=== PATIENT | male | born 1945 | race Caucasian/White ===

== ENCOUNTER 2017-03-08 07:02 | Inpatient (IN) | payer MEDICARE, BC ==
[~2017-03-08] VITALS: Ht 144.8 cm; Wt 97.5 kg
[2017-03-08] MEDS ORDERED: SIMV20TA6 PO (08:31)
[2017-03-08] MEDS ORDERED: MULT-1168 PO (08:31)
[2017-03-08] MEDS ORDERED: METF500T4 PO (08:31)
[2017-03-08] MEDS ORDERED: CALC-911 PO (08:31)
[2017-03-08] MEDS ORDERED: CHOL100044 PO (08:31)
[2017-03-08] MEDS ORDERED: ASPI81TA2 PO (08:31)
[2017-03-08] MEDS ORDERED: FURO20TA4 PO (08:31)
[2017-03-08] MEDS ORDERED: BENA20TA2 PO (08:31)
[2017-03-08] MEDS ORDERED: ASPI-869 PO (08:40)
[2017-03-08] MEDS ORDERED: MEMA10TA PO (08:50)
[2017-03-08] MEDS ORDERED: LOSA25TA13 PO (08:50)
[2017-03-08] MEDS ORDERED: FERR-58 PO (08:50)
[2017-03-08] MEDS ORDERED: ASPI-991 PO (08:50)
[2017-03-08] MEDS ORDERED: DONE10TA44 PO (08:50)
[2017-03-08] MEDS ORDERED: ACETAMINOPHEN 325 MG TABLET PO PRN (09:00)
[2017-03-08] MEDS ORDERED: MAG HYDROX/AL HYDROX/SIMETH 30 ML UDC PO PRN (09:00)
[2017-03-08] MEDS ORDERED: MAGNESIUM HYDROXIDE 30 ML UDC PO PRN (09:00)
[2017-03-08] MEDS ORDERED: ZOLPIDEM TARTRATE 5 MG TABLET PO PRN (09:00)
--- NOTE | 2017-03-08 09:30 | NUR ---
DIRECT ADMIT FROM [facility], WHERE HE WAS MEDICALLY CLEARED. ORIGINALLY HE CAME FROM HOME WHERE HE WAS HITTING THE ROOMMATE (FEMALE). ADMITTED ON A 5150 HOLD GD DTO. VITALS STABLE ON ADMISSION, HE IS AGITATED AND WAS PUSHING MEDICAL TRANSPORT. DR. ENG IS ADMITTING PSYCHIATRIST. DR. MOY ON THE UNIT NOTIFIED TO RECONCILE MEDICATIONS.
[2017-03-08 09:33] VITALS: BP 142/83
[2017-03-08 10:11] VITALS: BP 158/72
[2017-03-08 15:37] VITALS: BP 156/79
[2017-03-08 16:00] VITALS: BP 156/79
--- NOTE | 2017-03-08 16:36 | NUR ---
Initial Discharge Plan: According to face sheet, patient lives at [address] [facility] [address], . However, patient informed SW that he lives in [place]. Patient seems confused and disoriented. SW will follow up with treatment team and will work to arrange safe and proper discharge. SW will provide referrals to address pt's smoking habits and alcohol use.
[2017-03-08 17:00] VITALS: BP 156/79
[2017-03-08] MEDS: METFORMIN 500 MG TABLET PO SCH (17:18)
[2017-03-08] MEDS ORDERED: SIMVASTATIN 20 MG TABLET PO SCH (18:00)
[2017-03-08 20:00] VITALS: BP 155/83
[2017-03-08] MEDS: DONEPEZIL 5 MG TABLET PO SCH (22:00)
[2017-03-08] MEDS: SIMVASTATIN 20 MG TABLET PO SCH (22:00)
[2017-03-08] MEDS: QUETIAPINE FUMARATE 25 MG TABLET PO SCH (22:00)
--- NOTE | 2017-03-08 22:13 | NUR ---
PT REFUSED SCHEDULED MEDICATIONS. OFFER 3X. EXPLAIN THE RISK AND BENEFITS OF NOT TAKING HIS MEDS. PT STILL REFUSED. WILL CONTINUE TO MONITOR.
[2017-03-09 08:00] VITALS: BP 140/83
[2017-03-09] MEDS: METFORMIN 500 MG TABLET PO SCH ×2 (09:04→16:18)
[2017-03-09] MEDS: MULTIVITAMIN/LUTEIN/MINERALS 1 TAB PO SCH (09:04)
[2017-03-09] MEDS: CHOLECALCIFEROL 1,000 UNIT TABLET (VIT D3) PO SCH (09:04)
[2017-03-09] MEDS: BENAZEPRIL HCL 5 MG TABLET PO SCH (09:04)
[2017-03-09] MEDS: MEMANTINE HCL 5 MG TABLET PO SCH (09:04)
[2017-03-09] MEDS: CALCIUM CARBONATE 500 MG TAB.CHEW PO SCH (09:04)
[2017-03-09] MEDS: FERROUS SULFATE (325 MG) 325 MG/TAB TABLET PO SCH (09:05)
[2017-03-09] MEDS: LOSARTAN POTASSIUM 25 MG TABLET PO SCH (09:05)
[2017-03-09] MEDS: ASPIRIN EC 81 MG TABLET.DR PO SCH (09:05)
[2017-03-09] MEDS: NICOTINE PATCH (21MG) 21 MG PATCH.TD24 TD SCH (11:58)
--- NOTE | 2017-03-09 15:30 | NUR ---
REMINGTON received a call from Becki Garcia, . Becki stated that the had Power of Greenhouse Technician for patient. REMINGTON asked her to fax over the documents to fax number [phone]. REMINGTON stated that if patient cannot fax that before 5pm on Sunday, to please fax it to the nurse's station at [phone]. Becki stated that "all I know is I don't want him out of the street." She stated that a jail would be a good option for him.
[2017-03-09 15:36] LABS: BASOPHILS # (AUTO) 0.1 /CMM (0.0-0.2); BASOPHILS % (AUTO) 0.7 % (0.0-2.0); EOSINOPHILS # (AUTO) 0.4 /CMM (0.0-0.7); HEMATOCRIT 53 % (39-51); LYMPHOCYTES # (AUTO) 2.1 /CMM (0.8-4.8); LYMPHOCYTES % (AUTO) 22.7 % (20.0-44.0); MEAN CORPUSCULAR HEMOGLOBIN 25 PG (26.0-33.0); MEAN CORPUSCULAR HGB CONC 32 g/dl (31.0-36.0); MEAN CORPUSCULAR VOLUME 79 fL (80-96); MONOCYTES # (AUTO) 0.8 /CMM (0.1-1.30); MONOCYTES % (AUTO) 8.4 % (2.0-12.0); NEUTROPHILS % (AUTO) 64.2 % (43.0-81.0); PLATELET COUNT (AUTO) 232 /CMM (150-450); RDW COEFFICIENT OF VARIATION 13.7 (11.5-15.0); RED BLOOD CELL COUNT(AUTO) 6.74 MIL/uL (4.5-6.0); WHITE BLOOD COUNT (AUTO) 9.3 K/uL (4.3-11.0)
[2017-03-09 15:57] LABS: ALANINE AMINOTRANSFERASE 18 U/L (12-78); ALBUMIN 3.7 g/dL (3.4-5.0); ALKALINE PHOSPHATASE 83 U/L (46-116); ASPARTATE AMINOTRANSFERASE 14 U/L (15-37); BILIRUBIN,TOTAL 0.8 mg/dL (0.2-1.0); CARBON DIOXIDE 33 mmol/L (21-32); CHLORIDE 102 mmol/L (98-107); CREATININE 0.9 mg/dL (0.6-1.3); GLUCOSE 153 mg/dL (74-106); MAGNESIUM 2.2 mg/dL (1.8-2.4); PHOSPHORUS 3.5 mg/dL (2.5-4.9); POTASSIUM 4.8 mmol/L (3.5-5.1); SODIUM SERUM 140 mmol/L (136-145); TOTAL PROTEIN, SERUM 8.3 g/dL (6.4-8.2); UREA NITROGEN, BLOOD 13 mg/dL (7-18)
[2017-03-09 16:03] VITALS: BP 127/55
[2017-03-09 16:07] LABS: CHOLESTEROL 202 mg/dL (<200); HDL CHOLESTEROL 45 mg/dL (40-60); LDL 128 mg/dL (0-99); THYROID STIMULATING HORMONE 1.257 uIU/mL (0.358-3.74); TRIGLYCERIDES 191 mg/dL (30-150)
[2017-03-09 20:00] VITALS: BP 101/52
[2017-03-09] MEDS: SIMVASTATIN 20 MG TABLET PO SCH (21:50)
[2017-03-09] MEDS: QUETIAPINE FUMARATE 25 MG TABLET PO SCH (21:50)
[2017-03-09] MEDS: DONEPEZIL 5 MG TABLET PO SCH (21:50)
[2017-03-10 09:00] VITALS: BP 100/63
[2017-03-10] MEDS: LOSARTAN POTASSIUM 25 MG TABLET PO SCH (09:00)
[2017-03-10] MEDS: BENAZEPRIL HCL 5 MG TABLET PO SCH (09:00)
[2017-03-10] MEDS: MEMANTINE HCL 5 MG TABLET PO SCH (09:12)
[2017-03-10] MEDS: CALCIUM CARBONATE 500 MG TAB.CHEW PO SCH (09:12)
[2017-03-10] MEDS: NICOTINE PATCH (21MG) 21 MG PATCH.TD24 TD SCH (09:12)
[2017-03-10] MEDS: ASPIRIN EC 81 MG TABLET.DR PO SCH (09:13)
[2017-03-10] MEDS: CHOLECALCIFEROL 1,000 UNIT TABLET (VIT D3) PO SCH (09:13)
[2017-03-10] MEDS: MULTIVITAMIN/LUTEIN/MINERALS 1 TAB PO SCH (09:13)
[2017-03-10] MEDS: FERROUS SULFATE (325 MG) 325 MG/TAB TABLET PO SCH (09:13)
[2017-03-10] MEDS: METFORMIN 500 MG TABLET PO SCH ×2 (09:15→16:41)
[2017-03-10 16:00] VITALS: BP 111/70
[2017-03-10 20:00] VITALS: BP 115/50
[2017-03-10] MEDS ORDERED: QUETIAPINE FUMARATE 25 MG TABLET ONE (21:58)
[2017-03-10] MEDS: SIMVASTATIN 20 MG TABLET PO SCH (22:04)
[2017-03-10] MEDS: QUETIAPINE FUMARATE 25 MG TABLET PO SCH (22:04)
[2017-03-10] MEDS: DONEPEZIL 5 MG TABLET PO SCH (22:05)
[2017-03-11 08:11] VITALS: BP 119/66
[2017-03-11 08:26] LABS: APPEARANCE,URINE CLEAR (CLEAR); BILIRUBIN,URINE 1+ (NEGATIVE); BLOOD, URINE NEGATIVE Ery/uL (NEGATIVE); COLOR,URINE YELLOW (YELLOW); KETONES,URINE NEGATIVE (NEGATIVE); LEUKOCYTE ESTERASE ,URINE NEGATIVE (NEGATIVE); NITRITE, URINE NEGATIVE (NEGATIVE); PH,URINE 5.5 (5.0-8.0); PROTEIN,URINE NEGATIVE (NEGATIVE); UGLUCOSE NEGATIVE (NEGATIVE); UROBILINOGEN,URINE 0.2 EU/dL (0.2)
--- NOTE | 2017-03-11 08:35 | NUR ---
GPS RN NOTE: PATIENT IN THE ROOM RESTING AWAKE, NO SS DISTRESS NOTED,PER LICENSED PSYCHOLOGIST MANAGER RN PT HAD BMX2 WITH SOFT STOOL WILL CONTINUE MONITORING FOR SAFETY AND BEHAVIOR Q 15 MIN
[2017-03-11] MEDS: BENAZEPRIL HCL 5 MG TABLET PO SCH (09:20)
[2017-03-11] MEDS: NICOTINE PATCH (21MG) 21 MG PATCH.TD24 TD SCH (09:20)
[2017-03-11] MEDS: ASPIRIN EC 81 MG TABLET.DR PO SCH (09:20)
[2017-03-11] MEDS: CHOLECALCIFEROL 1,000 UNIT TABLET (VIT D3) PO SCH (09:20)
[2017-03-11] MEDS: CALCIUM CARBONATE 500 MG TAB.CHEW PO SCH (09:20)
[2017-03-11] MEDS: FERROUS SULFATE (325 MG) 325 MG/TAB TABLET PO SCH (09:20)
[2017-03-11] MEDS: MEMANTINE HCL 5 MG TABLET PO SCH (09:20)
[2017-03-11] MEDS: METFORMIN 500 MG TABLET PO SCH ×2 (09:20→16:46)
[2017-03-11] MEDS: MULTIVITAMIN/LUTEIN/MINERALS 1 TAB PO SCH (09:21)
[2017-03-11] MEDS: LOSARTAN POTASSIUM 25 MG TABLET PO SCH (09:21)
[2017-03-11 09:48] LABS: BACTERIA,URINE Rare /HPF (None Seen); RBC,URINE 0-2 /HPF (0-2); SQUAMOUS EPITHELIAL CELL,UR Few /HPF (None Seen); WBC,URINE 0-2 /HPF (0-3)
[2017-03-11 16:00] VITALS: BP 106/56
--- NOTE | 2017-03-11 18:04 | NUR ---
GPS RN NOTE: PATIENT IN THE DINNING ROOM SITTING IN THE CHAIR,AWAKE NO S/S DISTRESS NOTED,RESPIRATION EVEN NONLABORED , PT COMPLIANT WITH MEDICATIONS, DENIES SI/HI DENIES PAIN IN DISCOMFORT,VSS STABLE , PATIENT HAD NO BM THIS SHIFT WILL CONTINUE MONITORING AND INDORSE TO INCOMING SHIFT RN FOR CONTINUATION OF CARE.
[2017-03-11 19:39] VITALS: BP 97/56
[2017-03-11] MEDS: SIMVASTATIN 20 MG TABLET PO SCH (21:42)
[2017-03-11] MEDS: QUETIAPINE FUMARATE 25 MG TABLET PO SCH (21:42)
[2017-03-11] MEDS: DONEPEZIL 5 MG TABLET PO SCH (21:43)
[2017-03-12 08:04] LABS: THYROID STIMULATING HORMONE 1.486 uIU/mL (0.358-3.74)
[2017-03-12 08:11] VITALS: BP 122/62
[2017-03-12] MEDS: LOSARTAN POTASSIUM 25 MG TABLET PO SCH (08:19)
[2017-03-12] MEDS: METFORMIN 500 MG TABLET PO SCH ×2 (08:19→16:58)
[2017-03-12] MEDS: MULTIVITAMIN/LUTEIN/MINERALS 1 TAB PO SCH (08:19)
[2017-03-12] MEDS: FERROUS SULFATE (325 MG) 325 MG/TAB TABLET PO SCH (08:20)
[2017-03-12] MEDS: MEMANTINE HCL 5 MG TABLET PO SCH (08:20)
[2017-03-12] MEDS: ASPIRIN EC 81 MG TABLET.DR PO SCH (08:20)
[2017-03-12] MEDS: BENAZEPRIL HCL 5 MG TABLET PO SCH (08:20)
[2017-03-12] MEDS: CALCIUM CARBONATE 500 MG TAB.CHEW PO SCH (08:20)
[2017-03-12] MEDS: CHOLECALCIFEROL 1,000 UNIT TABLET (VIT D3) PO SCH (08:20)
[2017-03-12] MEDS: NICOTINE PATCH (21MG) 21 MG PATCH.TD24 TD SCH (08:20)
--- NOTE | 2017-03-12 12:42 | NUR ---
Discharge Planning: REMINGTON faxed inquiry to [facility] [id number] [place] [address] , fax number: [phone]
[2017-03-12 19:55] VITALS: BP 110/66
[2017-03-12] MEDS ORDERED: QUETIAPINE FUMARATE 25 MG TABLET PO SCH (20:00)
[2017-03-12] MEDS: DONEPEZIL 5 MG TABLET PO SCH (21:39)
[2017-03-12] MEDS: SIMVASTATIN 20 MG TABLET PO SCH (21:39)
[2017-03-13 08:00] VITALS: BP 100/69
[2017-03-13] MEDS: ASPIRIN EC 81 MG TABLET.DR PO SCH (08:40)
[2017-03-13] MEDS: FERROUS SULFATE (325 MG) 325 MG/TAB TABLET PO SCH (08:40)
[2017-03-13] MEDS: CHOLECALCIFEROL 1,000 UNIT TABLET (VIT D3) PO SCH (08:40)
[2017-03-13] MEDS: METFORMIN 500 MG TABLET PO SCH ×2 (08:40→16:45)
[2017-03-13] MEDS: LOSARTAN POTASSIUM 25 MG TABLET PO SCH (08:40)
[2017-03-13] MEDS: MEMANTINE HCL 5 MG TABLET PO SCH (08:40)
[2017-03-13] MEDS: MULTIVITAMIN/LUTEIN/MINERALS 1 TAB PO SCH (08:40)
[2017-03-13] MEDS: CALCIUM CARBONATE 500 MG TAB.CHEW PO SCH (08:40)
[2017-03-13] MEDS: BENAZEPRIL HCL 5 MG TABLET PO SCH (08:41)
[2017-03-13] MEDS: NICOTINE PATCH (21MG) 21 MG PATCH.TD24 TD SCH (09:33)
[2017-03-13 15:32] VITALS: BP 150/68
[2017-03-13] MEDS ORDERED: Z GUARD REMEDY 2 OZ OINT TP PRN (16:00)
[2017-03-13] MEDS: QUETIAPINE FUMARATE 25 MG TABLET PO SCH (20:16)
[2017-03-13 20:26] VITALS: BP 139/59
[2017-03-13] MEDS: SIMVASTATIN 20 MG TABLET PO SCH (21:07)
[2017-03-13] MEDS: DONEPEZIL 5 MG TABLET PO SCH (21:07)
[2017-03-14 08:00] VITALS: BP 135/73
[2017-03-14] MEDS: CALCIUM CARBONATE 500 MG TAB.CHEW PO SCH (08:28)
[2017-03-14] MEDS: MULTIVITAMIN/LUTEIN/MINERALS 1 TAB PO SCH (08:28)
[2017-03-14] MEDS: BENAZEPRIL HCL 5 MG TABLET PO SCH (08:28)
[2017-03-14] MEDS: CHOLECALCIFEROL 1,000 UNIT TABLET (VIT D3) PO SCH (08:29)
[2017-03-14] MEDS: ASPIRIN EC 81 MG TABLET.DR PO SCH (08:29)
[2017-03-14] MEDS: METFORMIN 500 MG TABLET PO SCH ×2 (08:29→17:02)
[2017-03-14] MEDS: LOSARTAN POTASSIUM 25 MG TABLET PO SCH (08:29)
[2017-03-14] MEDS: FERROUS SULFATE (325 MG) 325 MG/TAB TABLET PO SCH (08:29)
[2017-03-14] MEDS: MEMANTINE HCL 5 MG TABLET PO SCH (08:29)
[2017-03-14] MEDS: NICOTINE PATCH (21MG) 21 MG PATCH.TD24 TD SCH (08:29)
[2017-03-14 16:29] VITALS: BP 134/71
[2017-03-14 20:08] VITALS: BP 137/63
[2017-03-14] MEDS: QUETIAPINE FUMARATE 25 MG TABLET PO SCH (20:18)
[2017-03-14] MEDS: DONEPEZIL 5 MG TABLET PO SCH (21:22)
[2017-03-14] MEDS: SIMVASTATIN 20 MG TABLET PO SCH (21:22)
[2017-03-15 08:05] VITALS: BP 129/58
[2017-03-15] MEDS: NICOTINE PATCH (21MG) 21 MG PATCH.TD24 TD SCH (08:46)
[2017-03-15] MEDS: CHOLECALCIFEROL 1,000 UNIT TABLET (VIT D3) PO SCH (08:47)
[2017-03-15] MEDS: MULTIVITAMIN/LUTEIN/MINERALS 1 TAB PO SCH (08:47)
[2017-03-15] MEDS: BENAZEPRIL HCL 5 MG TABLET PO SCH (08:47)
[2017-03-15] MEDS: CALCIUM CARBONATE 500 MG TAB.CHEW PO SCH (08:47)
[2017-03-15] MEDS: METFORMIN 500 MG TABLET PO SCH ×2 (08:47→16:47)
[2017-03-15] MEDS: FERROUS SULFATE (325 MG) 325 MG/TAB TABLET PO SCH (08:47)
[2017-03-15] MEDS: MEMANTINE HCL 5 MG TABLET PO SCH (08:47)
[2017-03-15] MEDS: LOSARTAN POTASSIUM 25 MG TABLET PO SCH (08:47)
[2017-03-15] MEDS: ASPIRIN EC 81 MG TABLET.DR PO SCH (08:47)
[2017-03-15 15:37] VITALS: BP 126/89
[2017-03-15 20:00] VITALS: BP 118/65
[2017-03-15] MEDS: QUETIAPINE FUMARATE 25 MG TABLET PO SCH (21:19)
[2017-03-15] MEDS: SIMVASTATIN 20 MG TABLET PO SCH (21:59)
[2017-03-15] MEDS: DONEPEZIL 5 MG TABLET PO SCH (21:59)
[2017-03-16 07:54] VITALS: BP 129/68
[2017-03-16] MEDS: CALCIUM CARBONATE 500 MG TAB.CHEW PO SCH (08:24)
[2017-03-16] MEDS: MULTIVITAMIN/LUTEIN/MINERALS 1 TAB PO SCH (08:24)
[2017-03-16] MEDS: BENAZEPRIL HCL 5 MG TABLET PO SCH (08:24)
[2017-03-16] MEDS: FERROUS SULFATE (325 MG) 325 MG/TAB TABLET PO SCH (08:24)
[2017-03-16] MEDS: METFORMIN 500 MG TABLET PO SCH ×2 (08:24→16:32)
[2017-03-16] MEDS: MEMANTINE HCL 5 MG TABLET PO SCH (08:24)
[2017-03-16] MEDS: ASPIRIN EC 81 MG TABLET.DR PO SCH (08:24)
[2017-03-16] MEDS: CHOLECALCIFEROL 1,000 UNIT TABLET (VIT D3) PO SCH (08:24)
[2017-03-16] MEDS: NICOTINE PATCH (21MG) 21 MG PATCH.TD24 TD SCH (08:25)
[2017-03-16] MEDS: LOSARTAN POTASSIUM 25 MG TABLET PO SCH (08:25)
--- NOTE | 2017-03-16 13:46 | NUR ---
Discharge Planning: REMINGTON faxed an inquiry to [facility] [phone] / fax number [phone]
--- NOTE | 2017-03-16 13:46 | NUR ---
Discharge Planning: REMINGTON heard from Earnest from [facility] [address] [place] [address] , fax number: [phone] who stated that he will not know of a male bed availability until Monday 03/19. REMINGTON will follow up on Sunday.
[2017-03-16 16:09] VITALS: BP 130/65
[2017-03-16 20:03] VITALS: BP 137/64
[2017-03-16] MEDS: QUETIAPINE FUMARATE 25 MG TABLET PO SCH (20:22)
[2017-03-16] MEDS: SIMVASTATIN 20 MG TABLET PO SCH (21:55)
[2017-03-16] MEDS: DONEPEZIL 5 MG TABLET PO SCH (21:55)
[2017-03-17 08:00] VITALS: BP 117/60
[2017-03-17] MEDS: CHOLECALCIFEROL 1,000 UNIT TABLET (VIT D3) PO SCH (09:26)
[2017-03-17] MEDS: LOSARTAN POTASSIUM 25 MG TABLET PO SCH (09:26)
[2017-03-17] MEDS: CALCIUM CARBONATE 500 MG TAB.CHEW PO SCH (09:26)
[2017-03-17] MEDS: MULTIVITAMIN/LUTEIN/MINERALS 1 TAB PO SCH (09:26)
[2017-03-17] MEDS: FERROUS SULFATE (325 MG) 325 MG/TAB TABLET PO SCH (09:26)
[2017-03-17] MEDS: MEMANTINE HCL 5 MG TABLET PO SCH (09:26)
[2017-03-17] MEDS: ASPIRIN EC 81 MG TABLET.DR PO SCH (09:26)
[2017-03-17] MEDS: BENAZEPRIL HCL 5 MG TABLET PO SCH (09:26)
[2017-03-17] MEDS: METFORMIN 500 MG TABLET PO SCH ×2 (09:26→16:33)
[2017-03-17] MEDS: NICOTINE PATCH (21MG) 21 MG PATCH.TD24 TD SCH (09:56)
[2017-03-17 16:00] VITALS: BP 117/68
[2017-03-17 20:00] VITALS: BP 135/67
[2017-03-17] MEDS: QUETIAPINE FUMARATE 25 MG TABLET PO SCH (20:30)
[2017-03-17] MEDS: DONEPEZIL 5 MG TABLET PO SCH (21:46)
[2017-03-17] MEDS: SIMVASTATIN 20 MG TABLET PO SCH (21:46)
[2017-03-18 08:13] VITALS: BP 125/91
[2017-03-18] MEDS: MULTIVITAMIN/LUTEIN/MINERALS 1 TAB PO SCH (08:52)
[2017-03-18] MEDS: CHOLECALCIFEROL 1,000 UNIT TABLET (VIT D3) PO SCH (08:52)
[2017-03-18] MEDS: MEMANTINE HCL 5 MG TABLET PO SCH (08:53)
[2017-03-18] MEDS: FERROUS SULFATE (325 MG) 325 MG/TAB TABLET PO SCH (08:53)
[2017-03-18] MEDS: CALCIUM CARBONATE 500 MG TAB.CHEW PO SCH (08:53)
[2017-03-18] MEDS: METFORMIN 500 MG TABLET PO SCH ×2 (08:53→16:17)
[2017-03-18] MEDS: BENAZEPRIL HCL 5 MG TABLET PO SCH (08:53)
[2017-03-18] MEDS: NICOTINE PATCH (21MG) 21 MG PATCH.TD24 TD SCH (08:53)
[2017-03-18] MEDS: ASPIRIN EC 81 MG TABLET.DR PO SCH (08:53)
[2017-03-18] MEDS: LOSARTAN POTASSIUM 25 MG TABLET PO SCH (08:54)
[2017-03-18 16:12] VITALS: BP 107/65
[2017-03-18 20:27] VITALS: BP 109/54
[2017-03-18] MEDS: QUETIAPINE FUMARATE 25 MG TABLET PO SCH (20:50)
[2017-03-18] MEDS: DONEPEZIL 5 MG TABLET PO SCH (21:17)
[2017-03-18] MEDS: SIMVASTATIN 20 MG TABLET PO SCH (21:18)
[2017-03-19 08:00] VITALS: BP 132/73
[2017-03-19] MEDS: MULTIVITAMIN/LUTEIN/MINERALS 1 TAB PO SCH (08:13)
[2017-03-19] MEDS: FERROUS SULFATE (325 MG) 325 MG/TAB TABLET PO SCH (08:13)
[2017-03-19] MEDS: BENAZEPRIL HCL 5 MG TABLET PO SCH (08:13)
[2017-03-19] MEDS: METFORMIN 500 MG TABLET PO SCH ×2 (08:13→16:58)
[2017-03-19] MEDS: CHOLECALCIFEROL 1,000 UNIT TABLET (VIT D3) PO SCH (08:14)
[2017-03-19] MEDS: NICOTINE PATCH (21MG) 21 MG PATCH.TD24 TD SCH (08:14)
[2017-03-19] MEDS: CALCIUM CARBONATE 500 MG TAB.CHEW PO SCH (08:14)
[2017-03-19] MEDS: MEMANTINE HCL 5 MG TABLET PO SCH (08:14)
[2017-03-19] MEDS: ASPIRIN EC 81 MG TABLET.DR PO SCH (08:14)
[2017-03-19] MEDS: LOSARTAN POTASSIUM 25 MG TABLET PO SCH (08:15)
--- NOTE | 2017-03-19 12:22 | NUR ---
Discharge Planning: SW faxed inquiry to [address] [address] / fax number [phone], as well as sister facilities. SW to follow up.
--- NOTE | 2017-03-19 12:25 | NUR ---
Discharge Planning: SW called July from [facility] [phone] / fax number [phone], who stated that they could not find a strong enough skilled need for patient and, therefore, cannot accept.
--- NOTE | 2017-03-19 14:46 | NUR ---
Discharge Planning: At the request of pt's sister, Paula [phone], to keep patient near the [place] area, REMINGTON faxed an inquiry to [facility] [phone] / fax number [phone] [facility] [address] [place] [address] / fax number [phone]
[2017-03-19 16:00] VITALS: BP 112/63
[2017-03-19 19:50] VITALS: BP 121/71
[2017-03-19] MEDS: QUETIAPINE FUMARATE 25 MG TABLET PO SCH (20:43)
[2017-03-19] MEDS: DONEPEZIL 5 MG TABLET PO SCH (22:14)
[2017-03-19] MEDS: SIMVASTATIN 20 MG TABLET PO SCH (22:14)
[2017-03-20 08:00] VITALS: BP 114/69
[2017-03-20] MEDS: MULTIVITAMIN/LUTEIN/MINERALS 1 TAB PO SCH (09:00)
[2017-03-20] MEDS: NICOTINE PATCH (21MG) 21 MG PATCH.TD24 TD SCH (10:54)
[2017-03-20] MEDS: ASPIRIN EC 81 MG TABLET.DR PO SCH (10:55)
[2017-03-20] MEDS: CHOLECALCIFEROL 1,000 UNIT TABLET (VIT D3) PO SCH (10:55)
[2017-03-20] MEDS: FERROUS SULFATE (325 MG) 325 MG/TAB TABLET PO SCH (10:55)
[2017-03-20] MEDS: METFORMIN 500 MG TABLET PO SCH ×2 (10:55→17:39)
[2017-03-20] MEDS: CALCIUM CARBONATE 500 MG TAB.CHEW PO SCH (10:55)
[2017-03-20] MEDS: LOSARTAN POTASSIUM 25 MG TABLET PO SCH (10:56)
[2017-03-20] MEDS: BENAZEPRIL HCL 5 MG TABLET PO SCH (10:56)
--- NOTE | 2017-03-20 15:00 | NUR ---
REMINGTON spoke with pt's DPOA Becki Garcia, to discuss the discharge plan. Becki stated that, if no alternative placement was found, then [facility] would be okay for the patient to go to. REMINGTON will follow up with Becki towards the end of the day
--- NOTE | 2017-03-20 15:50 | NUR ---
REMINGTON called pt's DPOA Becki Garcia, who stated that [place] [address], . REMINGTON will make arrangements.
[2017-03-20 16:00] VITALS: BP 116/56
--- NOTE | 2017-03-20 16:54 | NUR ---
SW spoke with patient regarding his discharge. Patient stated that he wasn't going anywhere and that he did not want to go to any facility. Patient stated he wanted to go home. Patient stated that the placement was temporary, as his family cannot care for him at this point. Patient stated, "I don't have to go anywhere." SW stated that patient cannot stay at the hospital forever. Patient became increasingly agitated and shouted at SW to "take a hike!" Patient refused to discuss discharge plan.
--- NOTE | 2017-03-20 17:36 | NUR ---
RN Note Omnicell drawer closed before metformin was removed. Removed from automated medication dispensing machine once and administered once as prescribed.
[2017-03-20] MEDS: MEMANTINE HCL 5 MG TABLET PO SCH (17:39)
[2017-03-20 20:35] VITALS: BP 153/65
[2017-03-20] MEDS: QUETIAPINE FUMARATE 25 MG TABLET PO SCH (20:47)
[2017-03-20] MEDS: LORAZEPAM 0.5 MG TABLET PO PRN (21:39)
--- NOTE | 2017-03-20 21:39 | NUR ---
GPS RN NOTES: PATIENT ALERT AND ORIENTED X2. PATIENT IS ANXIOUS. VITAL SIGNS ARE STABLE. ATIVAN 1MG PO GIVEN ORDERED TOLERATED-WELL. WILL CONTINUE TO MONITOR [id number] FOR SAFETY AND BEHAVIOR.
[2017-03-20] MEDS: DONEPEZIL 5 MG TABLET PO SCH (21:49)
[2017-03-20] MEDS: SIMVASTATIN 20 MG TABLET PO SCH (21:50)
[2017-03-21 08:00] VITALS: BP 103/56
[2017-03-21 09:00] VITALS: BP 103/56
[2017-03-21] MEDS: BENAZEPRIL HCL 5 MG TABLET PO SCH (09:00)
[2017-03-21] MEDS: LOSARTAN POTASSIUM 25 MG TABLET PO SCH (09:00)
[2017-03-21] MEDS: CALCIUM CARBONATE 500 MG TAB.CHEW PO SCH (09:40)
[2017-03-21] MEDS: NICOTINE PATCH (21MG) 21 MG PATCH.TD24 TD SCH (09:40)
[2017-03-21] MEDS: CHOLECALCIFEROL 1,000 UNIT TABLET (VIT D3) PO SCH (09:40)
[2017-03-21] MEDS: LORAZEPAM 0.5 MG TABLET PO PRN (09:41)
[2017-03-21] MEDS: FERROUS SULFATE (325 MG) 325 MG/TAB TABLET PO SCH (09:41)
[2017-03-21] MEDS: MEMANTINE HCL 5 MG TABLET PO SCH (09:41)
[2017-03-21] MEDS: METFORMIN 500 MG TABLET PO SCH (09:41)
--- NOTE | 2017-03-21 09:41 | NUR ---
RN NOTES ADMINISTERED ATIVAN 1 MG PO PRN FOR ANXIETY, PER PATIENT REQUEST, V/S TAKEN BP- 108/ 57, P-59, CONTINUED MONITORING.
[2017-03-21] MEDS: MULTIVITAMIN/LUTEIN/MINERALS 1 TAB PO SCH (09:42)
[2017-03-21] MEDS: ASPIRIN EC 81 MG TABLET.DR PO SCH (09:42)
--- NOTE | 2017-03-21 11:20 | NUR ---
Discharge Note: Patient will be discharged to SNF Patient will be discharged to SNF [address] [address] via ambulance. Ambulance transportation was arranged by REMINGTON through [facility], trip number [id number]. Patients DPOA, Becki Garcia, and sister, Paula [phone], have been notified. Both are in agreement with the plan. REMINGTON also informed Dee, supervisor drying and softening of the discharge. [facility] stated that pt's bed is already set up in room 513A. Patient will be seen by his psychiatrist Dr. Polanco [address] [facility] [address], [place], [place] [id number] [phone] on 03/26/17 at 9:30am and will also address his history of alcohol abuse. Patient will also be seen by his chief internal auditor at the facility, Dr. Burns [address] [place] [address] [facility] [address], [place] [address] [phone] on 03/27/17 at 11am. Addendum: 03/23/17 at 0825 by FRANCOISE MACEDO Patient was provided with referrals to attend a nicotine anonymous meeting located at [facility], [address] [place] [address] on March 27 at 7pm. Patient was also provided referrals to [facility] [business office located on [address] [place] [address] / ]. Patient encouraged to call [phone]-LUNGSUSA. Patient was also referred to [facility] [business office located at [address] [place] [phone] / ]. Patient encouraged to call [phone].
--- NOTE | 2017-03-21 11:50 | NUR ---
DISCHARGE NOTES PATIENT DISCHARGE AT THIS TIME GOING SNF. PATIENT A/O X3, MED COMPLIANT, V/S STABLE, MEDICALLY STABLE, NO C/O PAIN. PATIENT DENIED SI/HI/AVH AT THIS TIME. MED RECONCILIATION, AND DISCHARGE ORDER REVIEWED AND EXPLAINED TO. REPORT GIVEN SNF RN TIERA. RN VERBALIZED UNDERSTANDING. BELONGING RETURNED BACK TO THE PATIENT. PATIENT SIGN PAPERWORK, PICTURE TAKEN. PATIENT WILL FOLLOW SNF PSYCHIATRIST, AND TRANSPORTATION DESIGN ENGINEER. FAMILY AWARE OF ABOUT DISCHARGE. PATIENT TOBACCO BLENDER BY AMBULANCE.
== END 2017-03-21 11:45 | DRG 885 ==
LOC: GPS 07:02
PROVIDERS: ADMIT Psychiatry & Neurology Psychiatry; ATTEND Internal Medicine
DX: F29 Unspecified psychosis not due to a substance or known physiological condition (principal); F03.91 Unspecified dementia, unspecified severity, with behavioral disturbance; E88.81 Metabolic syndrome and other insulin resistance; E11.9 Type 2 diabetes mellitus without complications; Z68.42 Body mass index [BMI] 45.0-49.9, adult; E44.1 Mild protein-calorie malnutrition; D50.9 Iron deficiency anemia, unspecified; E78.5 Hyperlipidemia, unspecified; F17.210 Nicotine dependence, cigarettes, uncomplicated; E66.9 Obesity, unspecified; I10 Essential (primary) hypertension; Z79.84 Long term (current) use of oral hypoglycemic drugs; Z79.899 Other long term (current) drug therapy; Z72.89 Other problems related to lifestyle
CPT/HCPCS: 36415; 80053-TC; 80061-TC; 81000-TC; 83540-TC; 83735-TC; 84100-TC; 84443-TC; 85025-TC; 87081-TC; 87086-TC